=== PATIENT | female | born 1990 | race Two or more races ===

== ENCOUNTER 2019-04-18 15:34 | Emergency (ER) | payer BC, OTHER ==
[~2019-04-18] VITALS: Ht 162.6 cm; Wt 120.1 kg
[2019-04-18 16:44] VITALS: BP 130/82
== END 2019-04-18 17:25 | disposition home or self-care (01) ==
LOC: ED 17:19
DX: S29.011A Strain of muscle and tendon of front wall of thorax, initial encounter (principal); M94.0 Chondrocostal junction syndrome [Tietze]; X58.XXXA Exposure to other specified factors, initial encounter; Y93.89 Activity, other specified; Y92.89 Other specified places as the place of occurrence of the external cause; Y99.8 Other external cause status
CPT/HCPCS: 36415; 71046; 80053; 83690; 84484; 85025; 93005; 99284

== ENCOUNTER 2020-07-28 10:52 | Inpatient (IN) | payer OTHER ==
[~2020-07-28] VITALS: Ht 162.6 cm; Wt 120.0 kg
[2020-07-28] MEDS ORDERED: ONDANSETRON ODT 4 MG PO ONE (11:30)
[2020-07-28] MEDS ORDERED: SODIUM CHLORIDE FLUSH 10ML SYR IVF ONE (11:30)
[2020-07-28] MEDS ORDERED: KETOROLAC 30 MG/1 ML IVPush ONE (11:30)
[2020-07-28] MEDS ORDERED: ONDANSETRON ODT 4 MG ONE (11:45)
[2020-07-28] MEDS ORDERED: KETOROLAC 30 MG/1 ML ONE (11:45)
[2020-07-28 11:57] LABS: BASOPHILS % (AUTO) 1 % (0-1); EOSINOPHILS % (AUTO) 1 % (1-7); LYMPHOCYTES % (AUTO) 30 % (22-44); MEAN CORPUSCULAR HEMOGLOBIN 28.2 pg (27.0-34.8); MEAN CORPUSCULAR HGB CONC 32.7 g/dL (32.4-35.8); MEAN PLATELET VOLUME 9.6 fL (7.4-10.4); MONOCYTES % (AUTO) 7 % (2-9); NEUTROPHILS % (AUTO) 61 % (42-75); PLATELET COUNT 276 x10^3/uL (130-400); RED BLOOD COUNT 5.12 x10^6/uL (3.82-5.3); RED CELL DISTRIBUTION WIDTH 13.8 % (9.6-15.2)
[2020-07-28 12:00] LABS: MD NO
[2020-07-28 12:02] LABS: ANION GAP 6 mmol/L (5-15); CHLORIDE 107 mmol/L (98-107); CREATININE 1.23 mg/dL (0.55-1.02)
[2020-07-28 12:03] LABS: ALBUMIN 3.7 g/dL (3.4-5.0)
[2020-07-28 12:07] LABS: MICROSCOPIC INDICATED
--- NOTE | 2020-07-28 12:25 | NUR ---
PT TO CT AT THIS TIME.
[2020-07-28 13:55] LABS: MICROSCOPIC INDICATED
--- NOTE | 2020-07-28 14:09 | NUR ---
TASK RN: PT STATES SHE HAS NO PAIN AT THIS TIME. AWAITING RE-EVAL
[2020-07-28] MEDS ORDERED: CEFTRIAXONE PMX 1GM/50ML 50 ML ONE (14:24)
[2020-07-28] MEDS ORDERED: CEFTRIAXONE PMX 1GM/50ML 50 ML IVPB ONE (14:30)
[2020-07-28 14:57] LABS: HCG UR SG 1.032 (1.003-1.030)
--- NOTE | 2020-07-28 15:25 | NUR ---
[facility] TELEPHONE HAND-OFF REPORT GIVEN TO MARILU MCLAUGHLIN IN OR.
--- NOTE | 2020-07-28 15:58 | NUR ---
SBAR TELEPHONE GIVEN TO MARILU ACEVES. PT TO GO TO [facility] 454 AFTER SURGERY/RECOVERY.
[2020-07-28] MEDS ORDERED: SENNA/DOCUSATE TABLET PO PRN (16:00)
[2020-07-28] MEDS ORDERED: ONDANSETRON ODT 4 MG PO PRN (16:00)
[2020-07-28] MEDS ORDERED: MORPHINE SULFATE 4 MG/ML, 1ML IVPush PRN (16:00)
[2020-07-28] MEDS: CEFTRIAXONE PMX 1GM/50ML 50 ML IV SCH (16:00)
[2020-07-28] MEDS ORDERED: SODIUM CHLORIDE FLUSH 10ML SYR IVF PRN (16:00)
[2020-07-28] MEDS ORDERED: POLYETHYLENE GLYCOL 17 GM PACKET PO PRN (16:00)
[2020-07-28] MEDS ORDERED: ONDANSETRON 2MG/ML, 2ML IVPush PRN ×3 (16:00→18:00)
[2020-07-28] MEDS ORDERED: PROMETHAZINE 25 MG/ML, 1ML IVPush PRN (18:00)
[2020-07-28] MEDS ORDERED: EPHEDRINE 50 MG/ML, 1ML IVPush PRN (18:00)
[2020-07-28] MEDS ORDERED: FENTANYL PF 100 MCG/2ML IV PRN (18:00)
[2020-07-28] MEDS ORDERED: MEPERIDINE/PF 25MG/0.5ML IVPush PRN (18:00)
[2020-07-28] MEDS ORDERED: ACETAMINOPHEN 325 MG TABLET PO PRN (18:00)
[2020-07-28] MEDS ORDERED: HYDROmorphone 1 MG/ML, 1ML INJ IVPush PRN (18:00)
[2020-07-28] MEDS ORDERED: hydrALAzine 20 MG/ML, 1ML IV PRN (18:00)
[2020-07-28] MEDS ORDERED: OXYcodone 5 MG/5 ML ORAL.SOL UDC PO PRN (18:00)
[2020-07-28] MEDS ORDERED: LABETALOL 5MG/ML, 20ML IV PRN (18:00)
[2020-07-28] MEDS ORDERED: MIDAZOLAM 1 MG/ML, 2ML ONE (18:22)
[2020-07-28] MEDS ORDERED: FENTANYL PF 100 MCG/2ML ONE (18:23)
[2020-07-28] MEDS ORDERED: DEXAMETHASONE 4 MG/ML, 1ML ONE (18:45)
[2020-07-28] MEDS ORDERED: PROPOFOL 10 MG/ML, 20ML ONE (18:45)
[2020-07-28] MEDS ORDERED: ONDANSETRON 2MG/ML, 2ML ONE (18:45)
[2020-07-28] MEDS ORDERED: SUCCINYLCHOLINE 20 MG/ML, 10ML ONE (18:45)
[2020-07-28 19:58] VITALS: BP 146/82
[2020-07-28] MEDS ORDERED: OXYcodone IR 5MG TABLET PO PRN (21:50)
[2020-07-28] MEDS: POTASSIUM CHLORIDE 20 MEQ in SODIUM CHLORIDE 0.45% 1,000 ML IV SCH (22:42)
[2020-07-28] MEDS: ACETAMINOPHEN 325 MG TABLET PO PRN (22:44)
[2020-07-28] MEDS: OXYcodone IR 5MG TABLET PO PRN (22:55)
[2020-07-29 00:50] VITALS: BP 139/83
[2020-07-29] MEDS: morphine SULFATE 10 MG/ML, 1ML IVPush PRN ×2 (01:19→01:47)
[2020-07-29 03:38] VITALS: BP 150/84
[2020-07-29] MEDS ORDERED: OXYcodone IR 5MG TABLET PO PRN (03:50)
[2020-07-29 04:10] LABS: BASOPHILS % (AUTO) 1 % (0-1); EOSINOPHILS % (AUTO) 0 % (1-7); LYMPHOCYTES % (AUTO) 14 % (22-44); MEAN CORPUSCULAR HEMOGLOBIN 28.4 pg (27.0-34.8); MEAN CORPUSCULAR HGB CONC 32.6 g/dL (32.4-35.8); MONOCYTES % (AUTO) 1 % (2-9); NEUTROPHILS % (AUTO) 84 % (42-75); PLATELET COUNT 287 x10^3/uL (130-400); RED BLOOD COUNT 4.92 x10^6/uL (3.82-5.3); RED CELL DISTRIBUTION WIDTH 13.4 % (9.6-15.2)
[2020-07-29 04:15] LABS: CHLORIDE 106 mmol/L (98-107)
[2020-07-29 04:21] LABS: ALANINE AMINOTRANSFERASE 39 U/L (12-78); ALBUMIN 3.4 g/dL (3.4-5.0); ALKALINE PHOSPHATASE 114 U/L (45-117); ANION GAP 6 mmol/L (5-15); BILIRUBIN,TOTAL 0.4 mg/dL (0.2-1.0); CREATININE 1.18 mg/dL (0.55-1.02)
[2020-07-29 05:17] LABS: MD SCAN
[2020-07-29] MEDS: OXYcodone IR 5MG TABLET PO PRN ×2 (06:46→12:14)
[2020-07-29] MEDS: ACETAMINOPHEN 325 MG TABLET PO PRN ×2 (06:46→12:15)
[2020-07-29 08:00] VITALS: BP 131/78
[2020-07-29] MEDS: POTASSIUM CHLORIDE 20 MEQ in SODIUM CHLORIDE 0.45% 1,000 ML IV SCH ×2 (08:30→12:13)
[2020-07-29] MEDS ORDERED: HEPARIN 5,000 UNITS/ML, 1ML SQ SCH (09:00)
[2020-07-29 12:49] VITALS: BP 125/73
[2020-07-29] MEDS ORDERED: OXYB10TA26 PO (15:09)
[2020-07-29] MEDS ORDERED: CEFD300C37 PO (15:09)
[2020-07-29] MEDS ORDERED: TAMS-11 PO (15:09)
[2020-07-29] MEDS ORDERED: OXYC5TAB3 PO (15:09)
[2020-07-29] MEDS: CEFTRIAXONE PMX 1GM/50ML 50 ML IV SCH (15:16)
== END 2020-07-29 17:00 | disposition home or self-care (01) | DRG 660 ==
LOC: ED 11:47 → EDIP 16:01 → 4NE 19:53 → DCLOUNGE 07-29 16:40
PROVIDERS: ADMIT Family Medicine; ATTEND Family Medicine
PROC: BT1F1ZZ Fluoroscopy of Left Kidney, Ureter and Bladder using Low Osmolar Contrast (ICD-10-PCS; 2020-07-28)
PROC: 0T9B70Z Drainage of Bladder with Drainage Device, Via Natural or Artificial Opening (ICD-10-PCS; 2020-07-28)
PROC: 0T778DZ Dilation of Left Ureter with Intraluminal Device, Via Natural or Artificial Opening Endoscopic (ICD-10-PCS; principal; 2020-07-28 15:30)
DX: N13.6 Pyonephrosis (principal); Z68.42 Body mass index [BMI] 45.0-49.9, adult; I10 Essential (primary) hypertension; N17.0 Acute kidney failure with tubular necrosis; E66.01 Morbid (severe) obesity due to excess calories; Z20.828 Contact with and (suspected) exposure to other viral communicable diseases
CPT/HCPCS: 36415; 74176; 80048; 80053; 81001; 81025; 82040; 84145; 85025; 87077; 87086; 87186; 87635; 96365; 96375; 99285; G0378; J0696; J1100; J1644; J1885; J2250; J2405; J2704; J3010; J3480; Q0162; C1769; C2617; J0330; J2270